=== PATIENT | female | born 1995 | race Hispanic/Latino ===

== ENCOUNTER 2021-09-21 18:00 | Inpatient (IN) | payer MEDICAID, OTHER, SELFPAY ==
[2021-09-22] MEDS ORDERED: Diphenoxylate HCl/Atropine Tablet PO PRN (05:51)
[2021-09-22] MEDS ORDERED: Misoprostol 200 MCG TAB PR PRN (05:51)
[2021-09-22] MEDS ORDERED: Promethazine HCl 25 MG/ML VIAL IM PRN ×2 (05:51→19:23)
[2021-09-22] MEDS ORDERED: hydrALAZINE 20 MG/ML VIAL SLOW IVP PRN (05:51)
[2021-09-22] MEDS ORDERED: Ondansetron PF 4 MG/2 ML Vial IVP PRN ×2 (05:51→19:23)
[2021-09-22] MEDS ORDERED: Acetaminophen 500 MG TAB PO PRN (05:51)
[2021-09-22] MEDS ORDERED: Carboprost 250 MCG/ML AMP IM PRN (05:51)
[2021-09-22] MEDS ORDERED: Methylergonovine 0.2 MG/ML VIAL IM PRN (05:51)
[2021-09-22] MEDS ORDERED: Ibuprofen 800 MG TAB PO PRN (05:51)
[2021-09-22] MEDS ORDERED: Lidocaine 1% (PF) 30 ML VIAL SC PRN (05:51)
[2021-09-22 05:56] VITALS: BMI 32.4
[2021-09-22] MEDS ORDERED: NS w/ Oxytocin 30 units 500 ML IV SCH (06:00)
[2021-09-22 07:29] LABS: Hemoglobin 9.8 g/dL (12.0-15.5); Mean Corpuscular HGB CONC 32.2 g/dL (32.0-36.0); Mean Corpuscular Hemoglobin 28.5 pg (27.0-33.0); Mean Corpuscular Volume 88.4 fl (81.6-98.3); Platelet Count 218 10x3/uL (150-450); Red Blood Cell (RBC) Count 3.44 10x6/uL (3.90-5.03); White Blood Cell (WBC) Count 8.5 10x3/uL (3.5-10.5)
[2021-09-22 07:54] LABS: Syphilis Antibody Nonreactive (Nonreactive); Syphilis Antibody Index 0.03 S/CO (<1.00 Non-Reactive)
[2021-09-22 07:56] LABS: Hep B Surf Ag Non-Reactive S/CO (NonReactive)
[2021-09-22] MEDS ORDERED: Bupivacaine 0.25% HCL 30 ML VIAL ONE (08:00)
[2021-09-22 08:15] LABS: HBSAg Index 0.19 S/CO (0-0.99)
[2021-09-22 08:45] LABS: SARS-CoV-2 NAA Rapid Test DETECTED (NotDetected)
[2021-09-22] MEDS ORDERED: Boudreaux's Butt Paste 60 GM TUBE TOP PRN (16:39)
[2021-09-22] MEDS: Lactated Ringer's 1,000 ML IV SCH (18:06)
[2021-09-22] MEDS: Misoprostol 100 MCG TAB VAG SCH ×2 (18:08→18:09)
[2021-09-22] MEDS ORDERED: Fentanyl 2 mcg/Bup 0.1% Cadd 100 ML ONE (18:38)
[2021-09-22] MEDS ORDERED: Lactated Ringer's 500 ML IV PRN (19:23)
[2021-09-22] MEDS ORDERED: diphenhydrAMINE 50 MG/ML VIAL IVP PRN (19:23)
[2021-09-22] MEDS ORDERED: Naloxone HCl 0.4 mg/ml Vial IVP PRN ×2 (19:23)
[2021-09-22] MEDS ORDERED: Acetaminophen 325 MG TAB PO PRN (19:23)
[2021-09-22] MEDS ORDERED: Hydrocerin (Eucerin) Cream 120 gm Jar TOP PRN (19:23)
[2021-09-22] MEDS ORDERED: ePHEDrine Sulfate 50 MG/10 ML VIAL SLOW IVP PRN (19:23)
[2021-09-22] MEDS ORDERED: Communication Order-Pharmacy FS SCH (19:30)
[2021-09-22] MEDS ORDERED: Fentanyl 2 mcg/Bupivacaine 0.1% Cassette 100 ML EPIDURAL SCH (19:30)
[2021-09-23] MEDS ORDERED: diphenhydrAMINE 25 MG CAP PO PRN (03:27)
[2021-09-23] MEDS ORDERED: Bisacodyl 10 MG SUPP PR PRN (03:27)
[2021-09-23] MEDS ORDERED: Boostrix 0.5 ML (Tdap) VIAL IM ONE (03:27)
[2021-09-23] MEDS ORDERED: Preparation H Ointment 28 GM TUBE PR PRN (03:27)
[2021-09-23] MEDS ORDERED: Ondansetron PF 4 MG/2 ML Vial IVP PRN (03:27)
[2021-09-23] MEDS ORDERED: Lanolin Ointment 7 GM TUBE TOP PRN (03:27)
[2021-09-23] MEDS ORDERED: Promethazine HCl 25 MG/ML VIAL IM PRN (03:27)
[2021-09-23] MEDS ORDERED: NS w/ Oxytocin 30 units 500 ML IV SCH (03:27)
[2021-09-23] MEDS ORDERED: hydrALAZINE 20 MG/ML VIAL SLOW IVP PRN (03:27)
[2021-09-23] MEDS ORDERED: Milk Of Magnesia 30 ML UDCUP PO PRN (03:27)
[2021-09-23] MEDS ORDERED: Benzocaine-Menthol 82.5 ML CAN TOP PRN (03:27)
[2021-09-23] MEDS: Lactated Ringer's 1,000 ML IV SCH (03:30)
[2021-09-23] MEDS: Misoprostol 100 MCG TAB VAG SCH (03:30)
[2021-09-23] MEDS: Ibuprofen 800 MG TAB PO SCH ×3 (05:22→21:31)
[2021-09-23] MEDS: Prenatal Vitamin 1 TAB PO SCH (08:42)
[2021-09-23] MEDS: Ferrous Sulfate 325 MG TAB PO SCH ×3 (08:42→18:13)
[2021-09-23] MEDS: Docusate 100 MG CAP PO SCH ×3 (08:42→21:31)
[2021-09-24] MEDS: Ibuprofen 800 MG TAB PO SCH ×3 (05:09→20:49)
[2021-09-24] MEDS: Ferrous Sulfate 325 MG TAB PO SCH ×2 (07:59→16:14)
[2021-09-24] MEDS: Docusate 100 MG CAP PO SCH ×2 (07:59→20:49)
[2021-09-24] MEDS: Prenatal Vitamin 1 TAB PO SCH (07:59)
[2021-09-24] MEDS ORDERED: Calcium Carbonate 500 MG ChewTAB PO PRN (22:17)
[2021-09-25] MEDS: Ibuprofen 800 MG TAB PO SCH ×2 (05:30→14:34)
[2021-09-25 07:48] VITALS: BP 114/66; TEMP 98.4
[2021-09-25] MEDS: Ferrous Sulfate 325 MG TAB PO SCH (08:59)
[2021-09-25] MEDS: Docusate 100 MG CAP PO SCH (09:00)
[2021-09-25] MEDS: Prenatal Vitamin 1 TAB PO SCH (09:00)
== END 2021-09-25 15:50 | disposition home or self-care (01) | DRG 805 ==
LOC: UNDOADMIN 18:38 → CSHLD 18:38 → CSHANTE 09-23 03:00
PROVIDERS: ADMIT Student in an Organized Health Care Education/Training Program; ATTEND Student in an Organized Health Care Education/Training Program
PROC: 10E0XZZ Delivery of Products of Conception, External Approach (ICD-10-PCS; principal; 2021-09-23)
PROC: 10907ZC Drainage of Amniotic Fluid, Therapeutic from Products of Conception, Via Natural or Artificial Opening (ICD-10-PCS; 2021-09-23)
PROC: 3E033VJ Introduction of Other Hormone into Peripheral Vein, Percutaneous Approach (ICD-10-PCS; 2021-09-23)
PROC: 3E0DXGC Introduction of Other Therapeutic Substance into Mouth and Pharynx, External Approach (ICD-10-PCS; 2021-09-23)
PROC: 0HQ9XZZ Repair Perineum Skin, External Approach (ICD-10-PCS; 2021-09-23)
DX: O41.03X0 Oligohydramnios, third trimester, not applicable or unspecified (principal); U07.1 COVID-19; Z37.0 Single live birth; O24.12 Pre-existing type 2 diabetes mellitus, in childbirth; O98.52 Other viral diseases complicating childbirth; Z3A.37 37 weeks gestation of pregnancy; O99.02 Anemia complicating childbirth; D50.9 Iron deficiency anemia, unspecified; Z80.41 Family history of malignant neoplasm of ovary; O76 Abnormality in fetal heart rate and rhythm complicating labor and delivery; O70.0 First degree perineal laceration during delivery
CPT/HCPCS: 36415; 36416; 51702; 85027; 86762; 86780; 86850; 86900; 86901; 87340; J2590; S0020; U0002